=== PATIENT | male | born 1945 | race Caucasian/White ===

== ENCOUNTER → 2023-06-27 09:09 | Outpatient (CLI) | payer OTHER, SELFPAY ==
--- NOTE | 2023-06-27 09:11 | DI.ECHO.S_ITS ---
[place] +---------+ [facility] : : [address] : : [place] : : [id number] : : Phone: [phone] Echocardiogram Report + + :Name: NBA LOMAX Study Date: 06/27/2023 Height: 68 in : :[facility] ReadingLocation: Weight: 200 lb : : Gender: Male BSA: 2.0 m2 : :: 1945 Age: 77 yrs BP: 138/67 mmHg: :Reason For Study: CORONARY ARTERY DISEASE : :Ordering Physician: FIGUEROA SY : :Roscoe Mcdonald Performed By: Jeniffer Pritchett : :Referring: FIGUEROA SY D.O. : + + Interpretation Summary 1. The left ventricular contractility is normal. Estimated ejection fraction is greater than 55% with no segmental wall motion abnormalities. No left ventricular hypertrophy is noted. Unable to comment on diastolic function. 2. The right ventricular contractility is mildly compromised. There is flattening of the interventricular septum suggestive of a pressure overloaded state in the right ventricle. 3. Both atria are severely dilated. The right ventricular cavity also appears to be dilated. The left ventricle is of normal size. 4. Mild mitral regurgitation is noted. 5. There is moderate fibrocalcific changes of the aortic valve which is trileaflet. No significant stenosis is appreciated. There is mild to moderate aortic insufficiency. 6. There is mild to moderate tricuspid regurgitation noted with severely elevated pulmonary systolic artery pressures with estimated pulmonary systolic artery pressure of 95 mmHg. 7. No obvious intracardiac shunts noted. 8. No obvious intracardiac masses nor thrombi appreciated. 9. No hemodynamically significant pericardial effusion identified. Conclusion: Severe pulmonary hypertension with right ventricular dysfunction. Procedure: A two-dimensional transthoracic echocardiogram with color flow and Doppler was performed. The study quality was technically adequate. There is no prior echocardiogram noted for this patient. The patient was in atrial fibrillation with heart rates between 64-80 bpm during the exam. Left Ventricle: The left ventricle is normal in size. Proximal septal thickening is noted. The ejection fraction is estimated to be 60-65%. The interventricular septum is flattened, consistent with a right ventricular pressure overload condition. Septal motion is consistent with conduction abnormality. Diastolic function could not be accurately assessed due to atrial fibrillation. Right Ventricle: The right ventricle is moderate to severely dilated. Right ventricular systolic function is mildly reduced. Atria: Both atria are severely dilated. There is no Doppler evidence for an interatrial shunt. Mitral Valve: The mitral valve leaflets appear borderline thickened, but open well. There is mild mitral regurgitation. Aortic Valve: The aortic valve is trileaflet. The aortic valve is moderately calcified. There is mildly reduced leaflet mobility. There is mild aortic valve sclerosis. The peak aortic velocity is 1.9 m/sec. The aortic valve mean gradient is 8 mmHg. There is mild to moderate aortic regurgitation. Tricuspid Valve: The tricuspid valve leaflets are thin and pliable. There is severe pulmonary hypertension. The right ventricular systolic pressure is estimated to be at least 95 mmHg based on an estimated right atrial pressure of 15 mm Hg. There is moderate tricuspid regurgitation. Pulmonic Valve: The pulmonic valve leaflets are thin and pliable; valve motion is normal. There is mild pulmonic regurgitation. Great Vessels: The aortic root is normal size. The ascending aorta is at the upper limits of normal in size. The IVC is dilated (diameter is greater than 2.1 cm) and it collapses less than 50% with a sniff. This suggests a high right atrial pressure of 15 mm Hg. Pericardium/ Pleura There is no pericardial effusion. There is no pleural effusion. MMode/2D Measurements & Calculations LVIDd: 4.1 cm LVOT diam: 2.0 cm LVIDs: 2.7 cm Ao root diam: 3.7 cm FS: 33.9 % asc Aorta Diam: 3.9 cm IVSd: 1.5 cm LVPWd: 0.97 cm LV reagan. diameter/BSA (cm/m^2): 2.0 LV sys. diameter/BSA (cm/m^2): 1.3 LA A2 area: 31.3 cm2 RA long axis: 7.0 cm LA A4 area: 33.4 cm2 RA area: 29.8 cm2 LA length (vol): 7.5 cm RA vol: 107.7 ml LA vol: 117.6 ml RA : 52.7 ml/m2 LA vol index: 57.6 ml/m2 IVC diam: 3.2 cm RVD1 (basal): 5.8 cm RVD2 (mid): 4.4 cm TAPSE: 1.6 cm Doppler Measurements & Calculations Ao V2 max: 186.9 cm/sec LVOT Max Damian: 87.0 cm/sec Ao V2 mean: 132.5 cm/sec LV V1 max P.0 mmHg Ao max P.6 mmHg LV V1 VTI: 19.3 cm Ao mean P.7 mmHg LAMAR(I,D): 1.6 cm2 Ao V2 VTI: 38.4 cm LAMAR(V,D): 1.5 cm2 sev ratio: 0.50 LAMAR indexed to BSA (cm^2/m^2): 0.77 MV E max damian: 123.1 cm/sec TR max damian: 449.4 cm/sec MV A max damian: 1.3 cm/sec TR max P.8 mmHg MV E/A: 93.0 PA V2 max: 63.7 cm/sec Med Peak E' Damian: 6.8 cm/sec PA V2 mean: 43.5 cm/sec E/E' med: 18.2 PA mean P.82 mmHg Lat Peak E' Damian: 11.0 cm/sec E/E' lat: 11.2 E/e' average: 14.7 MV dec time: 0.15 sec SV(LVOT): 60.9 ml Reading Physician:
== END ==
PROVIDERS: PCP Family Medicine; Referring Provider Family Medicine; Visit Provider Family Medicine
DX: Z00.00 Encounter for general adult medical examination without abnormal findings (principal); I08.3 Combined rheumatic disorders of mitral, aortic and tricuspid valves; I27.20 Pulmonary hypertension, unspecified
CPT/HCPCS: 93306